=== PATIENT | female | born 1935 | race Caucasian/White ===

== ENCOUNTER 2021-05-09 06:35 | Day surgery (SDC) | payer MEDICARE, BC ==
[~2021-05-09] VITALS: Ht 165.1 cm; Wt 66.2 kg
[2021-05-09 07:04] VITALS: BP 111/83
[2021-05-09] MEDS ORDERED: Statin PO (07:07)
[2021-05-09] MEDS ORDERED: ASPI-1265 PO (07:07)
[2021-05-09] MEDS ORDERED: LISI20TA28 PO (07:07)
[2021-05-09 09:53] VITALS: BP 162/83
[2021-05-09 10:00] VITALS: BP 164/88
== END 2021-05-09 10:05 | disposition home or self-care (01) ==
LOC: SSTAY O 06:35
PROVIDERS: ATTEND Radiology Vascular & Interventional Radiology
DX: R22.1 Localized swelling, mass and lump, neck (principal); C79.89 Secondary malignant neoplasm of other specified sites; I10 Essential (primary) hypertension; Z85.3 Personal history of malignant neoplasm of breast; Z79.899 Other long term (current) drug therapy; Z79.82 Long term (current) use of aspirin; Z90.12 Acquired absence of left breast and nipple
CPT/HCPCS: 20206; 76942

== ENCOUNTER 2023-02-12 11:27 | Day surgery (SDC) | payer MEDICARE, BC ==
[2023-02-08 10:11] LABS: BASOPHILS % (AUTO) 1.1 % (0-1); EOSINOPHILS % (AUTO) 1.5 % (0-6); HEMATOCRIT 39.1 % (35.0-45.0); HEMOGLOBIN 13.6 g/dl (12.0-16.0); LYMPHOCYTES # (AUTO) 1.3 X10'3 (1.1-4.8); LYMPHOCYTES % (AUTO) 38.3 % (21-51); MEAN CORPUSCULAR HEMOGLOBIN 34.5 PG (27.0-31.0); MEAN CORPUSCULAR HGB CONC 34.8 g/dL (33.0-36.5); MEAN CORPUSCULAR VOLUME 99.1 FL (78-98); MEAN PLATELET VOLUME 7.5 FL (7.4-10.4); MONOCYTES # (AUTO) 0.4 X10'3 (0-0.9); MONOCYTES % (AUTO) 11.8 % (2-12); NEUTROPHILS # (AUTO) 1.6 X10'3 (1.8-7.7); NEUTROPHILS % (AUTO) 47.3 % (42-75); PLATELET COUNT 169 X10'3 (140-440); RED BLOOD COUNT 3.95 X10'6 (4.20-5.60); RED CELL DISTRIBUTION WIDTH 14.1 % (11.5-14.5); WHITE BLOOD COUNT 3.4 X10'3 (4.5-11.0)
[2023-02-08 10:26] LABS: APTT 27 SECONDS (22-32)
[2023-02-08 10:27] LABS: ALBUMIN 3.9 G/DL (3.4-5.0); ANION GAP 9 (8-16); BLOOD UREA NITROGEN 15 MG/DL (7-18); BUN/CREATININE RATIO 15.8 (10.0-20.0); CALCIUM 9.2 MG/DL (8.5-10.1); CHLORIDE 101 MMOL/L (99-107); CHOL/HDL RATIO 3.1 (0.00-4.99); CHOLESTEROL 208 MG/DL (0-200); CREATININE 0.95 MG/DL (0.40-0.90); GLUCOSE 83 MG/DL (70-104); HDL CHOLESTEROL 67 MG/DL (35-60); LDL CHOLESTEROL 115 MG/DL (50-100); POTASSIUM 3.9 MMOL/L (3.5-5.1); SODIUM 137 MMOL/L (135-145); TOTAL CARBON DIOXIDE 27.1 MMOL/L (24-32); TRIGLYCERIDES 68 MG/DL (20-135); eGFR 56 ML/MIN
[~2023-02-12] VITALS: Ht 165.1 cm; Wt 64.7 kg
[2023-02-12] VITALS (9 sets, daily range): BP systolic 131–183; BP diastolic 67–95; PULSE 69–72; RESP 10–15; TEMP 98; O2SAT 93–95
[~2023-02-12 11:27] MED LIST: ASPI-1265 PO; LISI20TA28 PO; Statin PO
[2023-02-12] MEDS ORDERED: diphenhydrAMINE 25mg capsule PO PRN (11:50)
[2023-02-12] MEDS ORDERED: LORazepam 0.5 MG tablet PO PRN (11:50)
[2023-02-12] MEDS ORDERED: normal saline 1,000 ML IV SCH (11:50)
[2023-02-12] MEDS ORDERED: LIDOcaine 1% 30ml preserv. free vial ONE (11:58)
[2023-02-12] MEDS ORDERED: fentaNYL/PF 50MCG/1 ML 2ML syringe ONE (11:58)
[2023-02-12] MEDS ORDERED: midazolam 1 mg/ML 2ml injection ONE (11:58)
[2023-02-12] MEDS ORDERED: verapamil 2.5 mg/ml inj IV ONE (11:58)
[2023-02-12] MEDS ORDERED: LIDOcaine 1% (10mg/ml) 2ml vial ONE ×2 (11:58→14:00)
[2023-02-12] MEDS ORDERED: heparin 1,000unit/ml 10ml vial 10 ML ONE (11:59)
[2023-02-12] MEDS ORDERED: iohexol 350MG/ML 100ml bottle IV ONE (11:59)
[2023-02-12] MEDS ORDERED: nitroGLYCERIN-Tridil 50MG/D5W 250 ML IV ONE (11:59)
[2023-02-12] MEDS ORDERED: ANAS1TAB10 PO (12:53)
[2023-02-12] MEDS ORDERED: PALB75TA PO (12:53)
[2023-02-12] MEDS ORDERED: GABA300T25 PO (12:53)
[2023-02-12] MEDS ORDERED: DULO60CA65 PO (12:53)
[2023-02-12 14:40] LABS: ISTAT HGB ART 11.2 g/dl (12.0-16.0); ISTAT Hct ART 33 %PCV (35-45); ISTAT O2 SATURATION ARTERIAL 91 % (95-98); ISTAT SOURCE ART
[2023-02-12 14:44] LABS: ISTAT Hct MIX 35 %PCV (35-45); ISTAT O2 SATURATION MIX VENOUS 68 % (60-80); ISTAT SOURCE VEN
[2023-02-12] MEDS ORDERED: HYDROcodone/acetaminophen 5mg/325mg tablet PO PRN (15:05)
[2023-02-12] MEDS ORDERED: HYDROcodone/acetaminophen 10/325mg tab PO PRN (15:05)
== END 2023-02-12 17:20 | disposition home or self-care (01) ==
LOC: SSTAY O 11:27
PROVIDERS: ATTEND Student in an Organized Health Care Education/Training Program
DX: I35.0 Nonrheumatic aortic (valve) stenosis (principal); I25.10 Atherosclerotic heart disease of native coronary artery without angina pectoris; I10 Essential (primary) hypertension; I65.23 Occlusion and stenosis of bilateral carotid arteries; G62.9 Polyneuropathy, unspecified; Z79.899 Other long term (current) drug therapy; Z79.82 Long term (current) use of aspirin; Z85.3 Personal history of malignant neoplasm of breast
CPT/HCPCS: 36415; 80048; 80061; 82803; 85014; 85025; 85610; 85730; 93005; 93456; 99152; J1644; J2250; J3010; J3490; J7030; Q0163; Q9967; 93460; 99153; A6258; A6449; C1751; C1894

== ENCOUNTER 2023-02-20 11:07 | Outpatient (CLI) | payer MEDICARE, BC ==
[~2023-02-20 11:07] MED LIST changes: +ANAS1TAB10 PO; +DULO60CA65 PO; +GABA300T25 PO; +PALB75TA PO; -Statin PO
[2023-02-20 11:40] LABS: BASOPHILS % (AUTO) 1.2 % (0-1); EOSINOPHILS % (AUTO) 1.1 % (0-6); HEMATOCRIT 39.4 % (35.0-45.0); HEMOGLOBIN 13.4 g/dl (12.0-16.0); LYMPHOCYTES # (AUTO) 1.5 X10'3 (1.1-4.8); LYMPHOCYTES % (AUTO) 38.4 % (21-51); MEAN CORPUSCULAR HEMOGLOBIN 34.3 PG (27.0-31.0); MEAN CORPUSCULAR HGB CONC 33.9 g/dL (33.0-36.5); MEAN CORPUSCULAR VOLUME 101.3 FL (78-98); MEAN PLATELET VOLUME 7.6 FL (7.4-10.4); MONOCYTES # (AUTO) 0.6 X10'3 (0-0.9); MONOCYTES % (AUTO) 14.3 % (2-12); NEUTROPHILS # (AUTO) 1.8 X10'3 (1.8-7.7); PLATELET COUNT 254 X10'3 (140-440); RED BLOOD COUNT 3.89 X10'6 (4.20-5.60); RED CELL DISTRIBUTION WIDTH 14.4 % (11.5-14.5); WHITE BLOOD COUNT 3.9 X10'3 (4.5-11.0)
[2023-02-20 11:46] LABS: APTT 26 SECONDS (22-32); PROTHROMBIN TIME 10.9 SECONDS (9.0-12.0)
[2023-02-20 11:55] LABS: ALANINE AMINOTRANSFERASE 19 U/L (12-78); ALBUMIN 3.9 G/DL (3.4-5.0); ALBUMIN/GLOBULIN RATIO 1.3 (1.1-1.5); ALKALINE PHOSPHATASE 54 IU/L (46-116); ANION GAP 13 (8-16); ASPARTATE AMINO TRANSFERASE 22 U/L (10-37); BILIRUBIN,TOTAL 0.6 MG/DL (0.1-1.0); BLOOD UREA NITROGEN 16 MG/DL (7-18); BUN/CREATININE RATIO 14.5 (10.0-20.0); CALCIUM 8.9 MG/DL (8.5-10.1); CHLORIDE 104 MMOL/L (99-107); GLUCOSE 86 MG/DL (70-104); POTASSIUM 3.9 MMOL/L (3.5-5.1); PRO BRAIN NATRIURETIC PEPTIDE 644 PG/ML (0-450); SODIUM 138 MMOL/L (135-145); TOTAL CARBON DIOXIDE 21.4 MMOL/L (24-32); TOTAL PROTEIN 6.9 G/DL (6.4-8.2); eGFR 47 ML/MIN
[2023-02-20] MEDS ORDERED: IODIXANOL 320 MG/ML INFUS..BTL 100ML IV ONE (11:59)
== END 2023-02-20 23:59 | disposition home or self-care (01) ==
LOC: RAD 11:07
PROVIDERS: ATTEND Internal Medicine Cardiovascular Disease
DX: R91.8 Other nonspecific abnormal finding of lung field (principal); I35.0 Nonrheumatic aortic (valve) stenosis; R06.02 Shortness of breath; I65.29 Occlusion and stenosis of unspecified carotid artery; R94.2 Abnormal results of pulmonary function studies; J44.9 Chronic obstructive pulmonary disease, unspecified; M89.9 Disorder of bone, unspecified; J98.4 Other disorders of lung; I87.1 Compression of vein; E04.9 Nontoxic goiter, unspecified; K57.30 Diverticulosis of large intestine without perforation or abscess without bleeding; M94.8X8 Other specified disorders of cartilage, other site; M43.8X4 Other specified deforming dorsopathies, thoracic region; M47.819 Spondylosis without myelopathy or radiculopathy, site unspecified; M43.16 Spondylolisthesis, lumbar region; Z90.12 Acquired absence of left breast and nipple
CPT/HCPCS: 36415; 71046; 71275; 74174; 75572; 80053; 83880; 85025; 85610; 85730; 94010; 94727; 94729; J3490; Q9967; 76377

== ENCOUNTER 2023-04-04 05:13 | Inpatient (IN) | payer MEDICARE, BC ==
[2023-04-01 15:18] LABS: BILIRUBIN,URINE NEGATIVE (Neg); CLARITY,URINE SLIGHTLY CLOUDY (Clear); COLOR,URINE YELLOW (Yellow); GLUCOSE, URINE NEGATIVE (Neg); KETONES,URINE TRACE mg/dl (Neg); LEUKOCYTE ESTERASE ,URINE SMALL (Neg); NITRITES, URINE NEGATIVE (Neg); OCCULT BLOOD,URINE TRACE-INTACT (Neg); PROTEIN,URINE NEGATIVE (Neg); UROBILINOGEN,URINE 0.2 E.U/dL (0.2-1.0)
[2023-04-01 15:21] LABS: BASOPHILS % (AUTO) 0.7 % (0-1); EOSINOPHILS # (AUTO) 0.1 X10'3 (0-0.9); EOSINOPHILS % (AUTO) 1.4 % (0-6); LYMPHOCYTES # (AUTO) 1.3 X10'3 (1.1-4.8); LYMPHOCYTES % (AUTO) 35.8 % (21-51); MEAN CORPUSCULAR HEMOGLOBIN 34.2 PG (27.0-31.0); MEAN CORPUSCULAR HGB CONC 33.8 g/dL (33.0-36.5); MEAN PLATELET VOLUME 7.7 FL (7.4-10.4); MONOCYTES # (AUTO) 0.3 X10'3 (0-0.9); NEUTROPHILS # (AUTO) 1.9 X10'3 (1.8-7.7); NEUTROPHILS % (AUTO) 53.1 % (42-75); PRE OP HEMATOCRIT 41.8 % (35.0-45.0); PRE OP HEMOGLOBIN 14.1 g/dL (12.0-16.0); PRE OP PLATELET COUNT 227 X10'3 (140-440); PRE OP WHITE BLOOD COUNT 3.6 10'3 (4.8-10.8); RED BLOOD COUNT 4.14 X10'6 (4.20-5.60); RED CELL DISTRIBUTION WIDTH 14.2 % (11.5-14.5)
[2023-04-01 15:25] LABS: UA COLLECTION TYPE CLN CATCH MIDSTREAM
[2023-04-01 15:32] LABS: PRE OP PROTIME 10.7 SECONDS (9.0-12.0)
[2023-04-01 15:32] LABS: BACTERIA,URINE 1+ /HPF (Neg)
[2023-04-01 15:33] LABS: HYALINE CASTS 0-3 /LPF (NEGATIVE); MUCUS STRANDS MANY /LPF (Neg); SQUAMOUS EPITHELIAL CELL,UR FEW /LPF (FEW); TRANSITIONAL EPI CELLS,URINE FEW /HPF; WBC CLUMPS,URINE FEW /HPF (NEGATIVE)
[2023-04-01 15:50] LABS: ALBUMIN/GLOBULIN RATIO 1.3 (1.1-1.5); ALKALINE PHOSPHATASE 55 IU/L (46-116); BLOOD UREA NITROGEN 16 MG/DL (7-18); BUN/CREATININE RATIO 18.4 (10.0-20.0); CALCIUM 9.5 MG/DL (8.5-10.1); CHLORIDE 104 MMOL/L (99-107); CREATININE 0.87 MG/DL (0.40-0.90); PRE OP ALT 15 U/L (30-65); PRE OP ANION GAP 7 (8-16); PRE OP AST 17 U/L (10-37); PRE OP BILIRUB, TOTAL 0.5 MG/DL (0.0-1.0); PRE OP GLUCOSE 84 MG/DL (70-104); PRE OP POTASSIUM 3.7 MMOL/L (3.4-5.1); PRE OP SODIUM 139 MMOL/L (135-145); PRO BRAIN NATRIURETIC PEPTIDE 1016 PG/ML (0-450); TOTAL CARBON DIOXIDE 27.6 MMOL/L (24-32); TOTAL PROTEIN 7.1 G/DL (6.4-8.2); eGFR 62 ML/MIN
[~2023-04-04] VITALS: Ht 162.6 cm; Wt 64.9 kg
[2023-04-04] VITALS (27 sets, daily range): BP systolic 95–166; BP diastolic 54–91; PULSE 54–93; RESP 9–25; TEMP 97.6–98.6; O2SAT 77–100
[~2023-04-04 05:13] MED LIST changes: +CALC-936 PO; +GABA300C PO; -GABA300T25 PO; -LISI20TA28 PO; +ringers solution, lacted 1,000 ML IV SCH
[2023-04-04] MEDS ORDERED: aspirin 325mg tablet PO ONE (05:30)
[2023-04-04] MEDS ORDERED: vancomycin/NS 1 GM ADD-VANTAGE 250 ML IV ONE (05:30)
[2023-04-04] MEDS: nitroPRUSSIDE (NIPRIDE) (200MCG/ML) 100ML Drip IV SCH (05:30)
[2023-04-04] MEDS: phenylephrine inj 50 MG in normal saline 250ml IV solN IV SCH (05:30)
[2023-04-04] MEDS ORDERED: cefazolin/dext.iso 2gm/100ml IVPB IV ONE (05:30)
[2023-04-04] MEDS ORDERED: ondansetron/PF 4mg/2ml inj IV PRN ×3 (05:30→08:35)
[2023-04-04] MEDS ORDERED: famotidine 20mg tablet PO ONE (05:30)
[2023-04-04] MEDS ORDERED: iohexol 350MG/ML 100ml bottle IV ONE (06:39)
[2023-04-04] MEDS ORDERED: protamine sulfate 10mg/ml inj. ONE (06:54)
[2023-04-04] MEDS ORDERED: ringers solution, lacted 1,000 ML IV SCH (07:05)
[2023-04-04] MEDS ORDERED: hydrALAZINE 20mg/ml inj. IV PRN ×2 (07:05→08:35)
[2023-04-04] MEDS ORDERED: morphine 4 MG/ML inj SYRINge IV PRN (07:05)
[2023-04-04] MEDS ORDERED: morphine 2 MG/ML inj. syringe IV PRN (07:05)
[2023-04-04] MEDS ORDERED: dexmedetomidine 200mcg/2ml inj. IV ONE (07:08)
[2023-04-04] MEDS ORDERED: MIDAZolam 1 MG/ML 5ML VIAL ONE (07:09)
[2023-04-04] MEDS ORDERED: fentaNYL/PF 50MCG/1 ML 2ML syringe ONE (07:09)
[2023-04-04] MEDS ORDERED: LIDOcaine 2% (20mg/ml) 5ml vial ONE (07:13)
[2023-04-04] MEDS ORDERED: propofol inj 20 ML IV ONE (07:14)
[2023-04-04] MEDS ORDERED: LIDOcaine 1% (10mg/ml)w/preservative inj. 20ml MDV ONE (07:27)
[2023-04-04] MEDS ORDERED: heparin 1,000 UNITS/NS 500ml 500 ML ONE (07:35)
[2023-04-04] MEDS ORDERED: ePHEDrine 50MG/ML INJ. ONE (07:40)
[2023-04-04] MEDS ORDERED: heparin 1,000unit/ml 10ml vial 10 ML ONE (07:44)
[2023-04-04] MEDS: PALBOCICLIB 75 MG PO SCH (08:00)
[2023-04-04] MEDS: aspirin 81mg tab.chew PO SCH (08:00)
[2023-04-04] MEDS: calcium carbonate/vitamin D3 tablet PO SCH ×2 (08:00→19:33)
[2023-04-04] MEDS: duloxetine 30mg CAPSULE.DR PO SCH (08:00)
[2023-04-04] MEDS: gabapentin 300mg capsule PO SCH (08:00)
[2023-04-04] MEDS: anastrozole 1 MG tablet PO SCH (08:00)
[2023-04-04] MEDS ORDERED: pantoprazole 40mg Tablet.DR PO PRN (08:35)
[2023-04-04] MEDS ORDERED: HYDROcodone/acetaminophen 5mg/325mg tablet PO PRN (08:35)
[2023-04-04] MEDS ORDERED: potassium CL 10mEq/100ml bag 100 ML IV PRN (08:35)
[2023-04-04] MEDS ORDERED: magnesium 2GM in 50ml NS 50 ML IV PRN (08:35)
[2023-04-04] MEDS ORDERED: potassium Cl 20mEq/100mL bag 100 ML IV PRN (08:35)
[2023-04-04] MEDS ORDERED: proCHLORperazine 10 MG/2 ml inj IV PRN (08:35)
[2023-04-04] MEDS ORDERED: ALPRAZolam 0.25mg tablet PO PRN (08:35)
[2023-04-04] MEDS ORDERED: docusate sod 100mg capsule PO PRN (08:35)
[2023-04-04] MEDS ORDERED: acetaminophen 325mg tablet PO PRN (08:35)
[2023-04-04] MEDS ORDERED: diphenhydrAMINE 25mg capsule PO PRN (08:35)
[2023-04-04] MEDS ORDERED: magnesium 4gm in 100ml NS 100 ML IV PRN (08:35)
[2023-04-04] MEDS ORDERED: potassium Cl 20 mEq SR tablet PO PRN (08:35)
[2023-04-04] MEDS ORDERED: labetalol 20mg/4ml (5mg/ml) syringe IV PRN (08:35)
[2023-04-04] MEDS ORDERED: potassium Cl 40MEQ/1/2NS 520ml 520 ML IV PRN (08:35)
[2023-04-04] MEDS ORDERED: potassium Cl 40MEQ/270ML bag 250 ML IV PRN (08:35)
--- NOTE | 2023-04-04 08:42 | NUR ---
Received from OR via BED, accompanied by Anesthesiologist DR. SOLIS and report given by Anesthesiologist AND OR NURSE. PT ARRIVED DROWSY BUT ABLE TO RESPOND TO VERBAL STIMULI ON 6 L OF 02 VIA MASK. VSS. PT HAS 20G IV TO RIGHT FOREARM AND ART LINE TO LEFT WRIST AND PRESSURE DEVICE INTACT. PT HAS DRESSING TO BILATERAL GROIN THAT ARE C/D/I, NO SWELLING OR BLEEDING NOTED. NEURO ASSESSMENT COMPLETED. PUSH, PULL, CUSTOMER CARE ASSOCIATE, SMILE ALL WITHIN NORMAL LIMITS. BILATERAL PEDAL PULSES NOTED VIA DOPPLER. VSS. WILL CONTINUE TO MONITOR AND RECHECK GROIN SITES. Addendum: 04/04/23 at 0917 by Huber Motley RN Amended: Links added.
--- NOTE | 2023-04-04 09:30 | NUR ---
DISCONTINUED LEFT ART LINE. HEMOSTASIS OBTAINED AFTER 5 MINUTES OF MANUAL PRESSURE. APPLIED DRESSING. PATIENT TOLERATED PROCEDURE WELL. NO S/S OF DISTRESS OR DISCOMFORT AT THIS TIME. WILL KEEP MONITORING.
--- NOTE | 2023-04-04 09:42 | NUR ---
PATIENT HAS MET ALL CRITERIA FOR TRANSFER TO PCU FLOOR. VSS. DRESSINGS INTACT. BED LOW, CALL LIGHT PRESENT AND 2 RAILS UP. RN PRESENT TO ACCEPT CARE OF PATIENT AND REPORT HAS BEEN CALLED. ALL QUESTIONS ANSWERED TO ACCEPTING RN. Addendum: 04/04/23 at 0958 by Huber Motley RN Amended: Links added.
[2023-04-04] MEDS: normal saline 1000ml 1,000 ML IV SCH ×2 (10:00→19:34)
[2023-04-04] MEDS: sod chloride 0.9% 10ml flush syringe IV SCH (16:47)
[2023-04-04] MEDS: ceFAZolin 1GM/D5W- ADD-VANTAGE 50 ML IV SCH (16:47)
[2023-04-04] MEDS: vancomycin/NS 1 GM ADD-VANTAGE 250 ML IV SCH (19:34)
[2023-04-04] MEDS ORDERED: gabapentin 300mg capsule PO SCH (21:00)
--- NOTE | 2023-04-04 23:03 | NUR ---
At this time per tele report ,pt had 7 beats of V tach with b/p of 114/74 and heart rate of 91. The leasing sales consultant was notified. No new order at this time.Will closely monitor pt.
[2023-04-05] VITALS: BP 108/64; PULSE 90; RESP 22; O2SAT 93
[2023-04-05] MEDS: sod chloride 0.9% 10ml flush syringe IV SCH ×2 (00:08→07:38)
[2023-04-05] MEDS: ceFAZolin 1GM/D5W- ADD-VANTAGE 50 ML IV SCH ×2 (00:12→07:37)
[2023-04-05 01:00] VITALS: BP 143/70; PULSE 99; RESP 18; O2SAT 94
[2023-04-05 02:00] VITALS: BP 132/66; PULSE 85; RESP 23; O2SAT 95
[2023-04-05] MEDS: nitroPRUSSIDE (NIPRIDE) (200MCG/ML) 100ML Drip IV SCH (02:12)
[2023-04-05] MEDS: normal saline 1000ml 1,000 ML IV SCH (04:20)
--- NOTE | 2023-04-05 06:22 | NUR ---
Problems reprioritized. Patient report given, questions answered & plan of care reviewed with Carolin.
[2023-04-05] MEDS: phenylephrine inj 50 MG in normal saline 250ml IV solN IV SCH (06:27)
[2023-04-05 06:39] LABS: BASOPHILS % (AUTO) 0.4 % (0-1); EOSINOPHILS % (AUTO) 0.4 % (0-6); HEMATOCRIT 35.4 % (35.0-45.0); HEMOGLOBIN 12.1 g/dl (12.0-16.0); LYMPHOCYTES # (AUTO) 0.6 X10'3 (1.1-4.8); LYMPHOCYTES % (AUTO) 16.4 % (21-51); MEAN CORPUSCULAR HEMOGLOBIN 34.5 PG (27.0-31.0); MEAN CORPUSCULAR HGB CONC 34.2 g/dL (33.0-36.5); MEAN CORPUSCULAR VOLUME 100.8 FL (78-98); MEAN PLATELET VOLUME 7.5 FL (7.4-10.4); MONOCYTES # (AUTO) 0.4 X10'3 (0-0.9); MONOCYTES % (AUTO) 11.4 % (2-12); NEUTROPHILS # (AUTO) 2.7 X10'3 (1.8-7.7); NEUTROPHILS % (AUTO) 71.4 % (42-75); PLATELET COUNT 127 X10'3 (140-440); RED BLOOD COUNT 3.51 X10'6 (4.20-5.60); RED CELL DISTRIBUTION WIDTH 14.2 % (11.5-14.5); WHITE BLOOD COUNT 3.8 X10'3 (4.5-11.0)
[2023-04-05 07:13] LABS: ALANINE AMINOTRANSFERASE 12 U/L (12-78); ALBUMIN/GLOBULIN RATIO 1.1 (1.1-1.5); ALKALINE PHOSPHATASE 46 IU/L (46-116); ANION GAP 10 (8-16); ASPARTATE AMINO TRANSFERASE 21 U/L (10-37); BILIRUBIN,TOTAL 0.7 MG/DL (0.1-1.0); BLOOD UREA NITROGEN 7 MG/DL (7-18); CALCIUM 7.9 MG/DL (8.5-10.1); CHLORIDE 103 MMOL/L (99-107); GLUCOSE 111 MG/DL (70-104); MAGNESIUM 1.6 MG/DL (1.5-2.4); POTASSIUM 3.1 MMOL/L (3.5-5.1); PRO BRAIN NATRIURETIC PEPTIDE 1353 PG/ML (0-450); SODIUM 136 MMOL/L (135-145); TOTAL CARBON DIOXIDE 22.8 MMOL/L (24-32); TOTAL PROTEIN 5.7 G/DL (6.4-8.2); eCRCL 49 ML/MIN; eGFR 79 ML/MIN
[2023-04-05] MEDS: aspirin 81mg tab.chew PO SCH (07:37)
[2023-04-05] MEDS: gabapentin 300mg capsule PO SCH (07:37)
[2023-04-05] MEDS: calcium carbonate/vitamin D3 tablet PO SCH (07:37)
[2023-04-05] MEDS: anastrozole 1 MG tablet PO SCH (07:37)
[2023-04-05] MEDS: duloxetine 30mg CAPSULE.DR PO SCH (07:37)
[2023-04-05] MEDS: PALBOCICLIB 75 MG PO SCH (08:00)
[2023-04-05] MEDS ORDERED: aspirin 81mg tab.chew PO SCH (08:30)
[2023-04-05] MEDS: vancomycin/NS 1 GM ADD-VANTAGE 250 ML IV SCH (08:42)
[2023-04-05] MEDS ORDERED: potassium Cl 40MEQ/1/2NS 520ml 520 ML IV ONE ×2 (08:50→13:00)
[2023-04-05] MEDS ORDERED: potassium Cl 20 mEq SR tablet PO STA (09:20)
--- NOTE | 2023-04-05 10:00 | NUR ---
pt ambulated with a fww around the unit. 300 ft. no dizziness or sob. very steady with standby assist.
[2023-04-05] MEDS ORDERED: potassium Cl 20 mEq SR tablet PO ONE (10:20)
[2023-04-05 11:00] VITALS: BP 146/56; PULSE 76; RESP 18; TEMP 98.2; O2SAT 95
--- NOTE | 2023-04-05 12:00 | NUR ---
discharge orders discussed with pt. provided pamphlet on angioseal. Discussed all upcoming md appointments. educated pt on the importance of having a primary care physician. pt states she understands all instructions. removed iv and media monitor. pt exited unit via wheelchair to private car.
== END 2023-04-05 12:16 | disposition home or self-care (01) | DRG 266 ==
LOC: PAS IN 05:13 → PCU 3S 10:13
PROVIDERS: ADMIT Internal Medicine Cardiovascular Disease; ATTEND Internal Medicine Cardiovascular Disease
PROC: 04HY32Z Insertion of Monitoring Device into Lower Artery, Percutaneous Approach (ICD-10-PCS; 2023-04-04)
PROC: B41D1ZZ Fluoroscopy of Aorta and Bilateral Lower Extremity Arteries using Low Osmolar Contrast (ICD-10-PCS; 2023-04-04)
PROC: 02RF38Z Replacement of Aortic Valve with Zooplastic Tissue, Percutaneous Approach (ICD-10-PCS; principal; 2023-04-04 07:08)
DX: I35.0 Nonrheumatic aortic (valve) stenosis (principal); Z00.6 Encounter for examination for normal comparison and control in clinical research program; I50.33 Acute on chronic diastolic (congestive) heart failure; I11.0 Hypertensive heart disease with heart failure; Z85.3 Personal history of malignant neoplasm of breast; Z92.21 Personal history of antineoplastic chemotherapy; Z90.10 Acquired absence of unspecified breast and nipple
CPT/HCPCS: 33361; 36415; 71045; 71046; 76937; 80053; 81001; 82948; 83735; 83880; 85025; 85347; 85610; 85730; 86885; 86900; 86901; 86920; 87081; 87088; 93005; 93308; A4618; A6258; A6449; C1756; C1760; C1769; C1894; G0378; J0360; J0690; J1644; J2250; J2370; J2704; J2720; J3010; J3370; J3490; J7030; J7040; J7050; J7120; Q9967